=== PATIENT | male | born 1955 | race Caucasian/White ===

== ENCOUNTER 2017-07-15 12:20 | Emergency (ER) | payer OTHER ==
[~2017-07-15] VITALS: Ht 190.5 cm; Wt 82.4 kg
[~2017-07-15 12:20] MED LIST: AMIO200T42 PO; AMLO10TA4 PO; ASPI-515 PO; ASPI-621 PO; BP MEDICATION; CALC200T3 PO; CEFD300C37 PO; CHOLESTEROL MED; FAMO20TA37 PO; HYDR-3240 PO; HYDR-882 PO; LISI-170 PO; METO-99 PO; METO50TA6 PO; MULT-224 PO; NITR0.4T28 SL; SIMV20TA3 PO; TICA90TA PO; Will bring DOS
[2017-07-15] MEDS ORDERED: SODIUM CHLORIDE FLUSH 10ML SYR IVF ONE (12:30)
[2017-07-15] MEDS ORDERED: METO50TA82 PO (12:58)
[2017-07-15 13:12] LABS: BASOPHILS # (AUTO) 0.01 x10^3/uL (0-0.1); BASOPHILS % (AUTO) 0 % (0-1); EOSINOPHILS % (AUTO) 0 % (1-7); LYMPHOCYTES # (AUTO) 0.33 x10^3/uL (1-3.4); LYMPHOCYTES % (AUTO) 4 % (22-44); MD NO; MEAN CORPUSCULAR HEMOGLOBIN 30.3 pg (27.5-34.5); MEAN CORPUSCULAR HGB CONC 34.1 g/dL (33.2-36.2); MEAN CORPUSCULAR VOLUME 88.8 fL (81-97); MEAN PLATELET VOLUME 8.6 fL (7.4-10.4); MONOCYTES # (AUTO) 1.05 x10^3/uL (0.2-0.8); MONOCYTES % (AUTO) 12 % (2-9); NEUTROPHILS # (AUTO) 7.31 x10^3/uL (1.8-6.8); NEUTROPHILS % (AUTO) 84 % (42-75); PLATELET COUNT 118 x10^3/uL (130-400); RED BLOOD COUNT 5.04 x10^6/uL (4.38-5.82); RED CELL DISTRIBUTION WIDTH 12.6 % (9.4-14.8)
[2017-07-15 13:25] LABS: ALBUMIN 3.4 g/dL (3.4-5.0); ANION GAP 14 mmol/L (5-15); CALCIUM 7.5 mg/dL (8.5-10.1); CHLORIDE 93 mmol/L (98-107)
[2017-07-15 13:26] LABS: INTERNATIONAL NORMALIZED RATIO 1.07 (0.93-1.1); PROTHROMBIN TIME 11.1 Seconds (9.6-11.5)
[2017-07-15] MEDS ORDERED: ACETAMINOPHEN 325 MG TABLET PO ONE ×2 (13:30→14:00)
[2017-07-15 13:31] LABS: ALANINE AMINOTRANSFERASE 38 U/L (12-78); ALKALINE PHOSPHATASE 65 U/L (45-117); BILIRUBIN,TOTAL 0.6 mg/dL (0.2-1.0); CREATININE 1.88 mg/dL (0.7-1.3); FREE T4 (FREE THYROXINE) 1.32 ng/dL (0.76-1.46); TOTAL PROTEIN 6.8 g/dL (6.4-8.2); TROPONIN I 0.023 ng/mL (0.000-0.045)
[2017-07-15] MEDS ORDERED: ACETAMINOPHEN 500 MG TABLET ONE (13:35)
[2017-07-15] MEDS ORDERED: SODIUM CHLORIDE 0.9% 1,000ML IVBOLUS ONE (14:00)
[2017-07-15] MEDS ORDERED: ONDANSETRON 2MG/ML, 2ML ONE (14:18)
[2017-07-15 14:26] LABS: RAPID INFLUENZA A Negative (Negative); RAPID INFLUENZA B POSITIVE (Negative)
[2017-07-15] MEDS ORDERED: ONDANSETRON 2MG/ML, 2ML IVPush ONE (14:30)
[2017-07-15 16:17] VITALS: BP 93/51
== END 2017-07-15 16:37 | disposition home or self-care (01) ==
LOC: ED 16:17
DX: I48.0 Paroxysmal atrial fibrillation (principal); Z79.01 Long term (current) use of anticoagulants; J11.1 Influenza due to unidentified influenza virus with other respiratory manifestations; E78.00 Pure hypercholesterolemia, unspecified; Z85.21 Personal history of malignant neoplasm of larynx; Z95.1 Presence of aortocoronary bypass graft
CPT/HCPCS: 36415; 71045; 80053; 83735; 83880; 84439; 84443; 84484; 85025; 85610; 85730; 87400; 93005; 96361; 96374; 99285; J2405; J7030